=== PATIENT | female | born 1990 | race American Indian/Alaskan Native ===

== ENCOUNTER 2019-02-16 18:48 | Inpatient (IN) | payer MEDICAID ==
[2019-02-16] MEDS ORDERED: MINERAL OIL PO PRN (20:15)
[2019-02-16] MEDS ORDERED: BRETHINE IVP PRN (20:15)
[2019-02-16] MEDS ORDERED: ZOFRAN IV PRN (20:15)
[2019-02-16] MEDS ORDERED: NARCAN 0.4 MG/1 ML IV PRN (20:15)
[2019-02-16] MEDS ORDERED: PHENERGAN PR PRN (20:15)
[2019-02-16] MEDS ORDERED: BRETHINE SUB-Q PRN (20:15)
[2019-02-16] MEDS ORDERED: XYLOCAINE 2% INFILTRATI ONE (20:15)
--- NOTE | 2019-02-16 20:24 | History and Physical Report ---
History of Present Illness Date of examination: 02/16/19 Date of admission: 02/16/19 18:48 Chief complaint: Induction of labor History of present illness: 28 yo AA Fe , AMANDA 02/17/2019, 39 weeks 6 days, presents for IOL due to macrosomia. Pt initiated early care with [employer] at 9w5d. complicated by Flu and Migraines in early . Low Lying placenta at anatomy scan. Resolved12/09/18. Excessive weight gain: 65Lbs. macrosomia 02/10/19 EFW 98.66%, 4614g, 10lbs 3 oz. Pt has a proven pelvis to 9lbs 3 oz. labs: O positive, Rubella Immune, VDRL Non-reactive, HBsAg Negative, HIV Negative, GC/CL/Trich Negative. GBS Negative. 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 denies: smoking, alcohol abuse, prescription drug abuse, IV drug use - Obstetrical History Expected Date of Delivery: 02/17/19 Actual Gestation: 39 Week(s) 6 Day(s) : 3 Para: 2 Hx # Term Pregnancies: 2 Number of Pregnancies: 0 Spontaneous Abortions: 0 Induced : 0 Number of Living Children: 2 #1 Gender: Male year: 2[birth year] Birthweight: 3.515 kg Method of Delivery: Vaginal Gestational age at delivery: 38 Complications: none #2 Infant Gender: Female year: 2,[birth year] Birthweight: 4.167 kg Method of Delivery: Vaginal Gestational age at delivery: 41 Complications: none Review of Systems Eyes: normal appearance Cardiovascular: no chest pain, no shortness of breath Respiratory: no shortness of breath Breasts: normal Gastrointestinal: no abdominal pain, no nausea, no vomiting, no diarrhea, no constipation Genitourinary: normal appearance, no vaginal bleeding, no vaginal discharge, no leakage of fluid, no pelvic pain, no genital sores Rectal Exam: deferred Integumentary: no rash, no sores, no lesions Psychiatric: other (Denies) Endocrine: other (Denies) - Physical Exam Breasts: Positive: normal Cardiovascular: Regular rate, Normal S1, Normal S2, No murmurs Lungs: Positive: Clear to auscultation, Normal air movement Abdomen: Positive: normal appearance, soft, normal bowel sounds. Negative: distention Genitourinary (Female): Positive: normal external genitalia, normal perenium Vulva: both: normal Vagina: Positive: normal moisture Uterus: Positive: enlarged (Gravid) Anus/Rectum: Positive: normal perianal skin Extremities: Positive: normal, edema (1-2+) Deep Tendon Reflex Grade: Normal +2 - Obstetrical FHR: auscultation normal, category 1 Uterine Contraction Monitor Mode: External Cervical Dilatation: 1 Cervical Effacement Percentage: 75 station: -2 Uterine Contraction Pattern: Absent Uterine Tone Measurement Phase: Resting Results All other labs normal. Assessment and Plan A: Term IUP 39w6d Category 1 tracing GBS Negative Suspected macrosomia; Proven pelvis 9lbs 3oz p: Admit to L&D Routine labor orders Cooks catheter/Pitocin Augmentation Anticipate Plans Cord Blood collection; Kit provided Pt aware of suspected macrosomia with last OBUS 02/10/19. EFW 10lbs 3oz. Discussed possibilities to include CPD, distress, Shoulder dystocia to include brachial plexus injury, erbs palsy, emergent need for C/S, and . Primary section option discussed. Pt has proven pelvis to 9lbs 3oz and desires .
[2019-02-16] MEDS ORDERED: LACTATED RINGERS 1,000 ML IV SCH (21:00)
[2019-02-16] MEDS ORDERED: PITOCin/NS 20 UNIT/1000ML DRIP 20 UNITS/1,000 ML BAG IV SCH (21:00)
[2019-02-16] MEDS ORDERED: CERVIDIL VG ONE (21:17)
[2019-02-16 21:20] LABS: Hematocrit 34.8 % (30.3-42.9); Hemoglobin 11.5 gm/dl (10.1-14.3); Mean Corpuscular HGB Conc 33 % (30-34); Mean Corpuscular Volume 82 fl (79-97); Platelet Count 275 K/mm3 (140-440); Red Blood Count 4.26 M/mm3 (3.65-5.03); Red Cell Distribution Width 16.6 % (13.2-15.2)
[2019-02-16] MEDS ORDERED: AMBIEN PO PRN (21:39)
[2019-02-17] MEDS ORDERED: SUBLIMAZE ONE (09:20)
[2019-02-17] MEDS ORDERED: SUBLIMAZE IV ONE (09:22)
[2019-02-17] MEDS ORDERED: LANSINOH TP PRN (10:27)
[2019-02-17] MEDS ORDERED: BENADRYL PO PRN (10:27)
[2019-02-17] MEDS ORDERED: TYLENOL PO PRN (10:27)
[2019-02-17] MEDS ORDERED: PHENERGAN PO PRN (10:27)
[2019-02-17] MEDS ORDERED: MILK OF MAGNESIA PO PRN (10:27)
[2019-02-17] MEDS ORDERED: TUCKS PAD TP PRN (10:27)
[2019-02-17] MEDS ORDERED: ZOFRAN IV PRN (10:27)
[2019-02-17] MEDS ORDERED: DULCOLAX PR PRN (10:27)
--- NOTE | 2019-02-17 10:35 | Procedure Note ---
OB Delivery Note - Delivery Date of Delivery: 02/17/19 (0932) Surgeon: JENY GABRIEL (MOOSE) Estimated blood loss: 200cc - Vaginal Delivery presentation: vertex Delivery position: OA Intrapartum events: none Delivery induction: cervidil Delivery monitor: external FHT, external uterine Route of delivery: (09:32) Delivery placenta: spontaneous (09:44) Delivery cord: 3 umbilical vessels Episiotomy: none Delivery laceration: none Anesthesia: none Delivery comments: Unmedicated viable male infant RENATO position over intact perineum at 09:32. Vigorous with strong lusty cry placed [id number] on mothers abdomen. Delayed cord clamping for 60 sec. Cord then cut by FOB with my guidance. Cord blood collection per protocol. Stem Cell/cord tissue collection done for private cord banking per pt request. Spontaneous ortiz delivery of intact placenta at 09:44. Release signed as pt plans to take placenta home with her. [email or web address]. Bleeding small. 10 units pitocin IM d/t loss of IV during pushing. No tears or lacerations. EBL 200ml. and mother left in stable condition in L&D. - A at 1 minute: 9 at 5 minutes: 9 Infant Gender: Male (4429 grams, 9lbs 12oz, 20.5")
[2019-02-17] MEDS ORDERED: CYTOTEC ONE (10:58)
[2019-02-17] MEDS ORDERED: SODIUM CHLORIDE FLUSH SYRINGE 10 ML IV SCH (11:00)
[2019-02-17] MEDS ORDERED: METHERGINE IM ONE (11:07)
[2019-02-17 12:41] LABS: Basophils % (Auto) 0.2 % (0.0-1.8); Eosinophils % (Auto) 0.1 % (0.0-4.3); Hematocrit 30.1 % (30.3-42.9); Hemoglobin 9.9 gm/dl (10.1-14.3); Lymphocytes # (Auto) 0.9 K/mm3 (1.2-5.4); Lymphocytes % (Auto) 5.3 % (13.4-35.0); Mean Corpuscular HGB Conc 33 % (30-34); Mean Corpuscular Volume 81 fl (79-97); Monocytes # (Auto) 0.9 K/mm3 (0.0-0.8); Monocytes % (Auto) 5.3 % (0.0-7.3); Platelet Count 273 K/mm3 (140-440)
--- NOTE | 2019-02-17 13:24 | Event Note ---
Date: 02/17/19 (11:00) Called to pt room from nurses station for heavy vaginal bleeding. Pt found to have saturated chux underneath her bottom. Pt moaning stating she is in severe pain "cramping like contractions." Fundus firm, U+1. 350ml clear, light yellow urine emptied using red rubber catheter. Manual evacuation of Lg amount clots which filled Chux. Weighed 1127 grams. 800mcg Cytotec FL at 11:04, IM Methergine given 11:07, IV restarted. 1 liter IVF with pitocin hung at bolus rate, 100mcg Fentanyl IVP. Stat CBC drawn. Pt symptomatic during event. Fundus then Firm, U- 1. Scant bleeding. VSS. EBL 1800ML
[2019-02-17] MEDS ORDERED: CYTOTEC PR ONE (14:04)
[2019-02-17] MEDS: NORCO 5/325 PO PRN ×2 (14:07→20:31)
[2019-02-17] MEDS: IBUPROFEN PO SCH ×2 (17:00→17:37)
[2019-02-17] MEDS: METHERGINE PO SCH (22:00)
[2019-02-18] MEDS: IBUPROFEN PO SCH ×2 (00:22→06:37)
[2019-02-18 00:51] LABS: Hematocrit 24.9 % (30.3-42.9); Hemoglobin 8.4 gm/dl (10.1-14.3)
[2019-02-18] MEDS: NORCO 5/325 PO PRN (06:22)
[2019-02-18] MEDS: METHERGINE PO SCH (06:22)
--- NOTE | 2019-02-18 14:09 | Progress Note ---
Assessment and Plan A: PPD#1 s/p with PPH Asymptomatic anemia Stable P: Routine PP care Ferrous Sulfate 325mg PO BID Discharge home today pending peds Subjective - Subjective Date of service: 02/18/19 Principal diagnosis: PPD#1 s/p with PPH Interval history: 28 yo AA Fe , AMANDA 02/17/2019, 39 weeks 6 days, presents for IOL due to macrosomia with 02/17/2019. P Patient reports: appetite normal, voiding normally, pain well controlled, flatus, ambulating normally : doing well, nursing well Objective - Vital Signs Latest vital signs: Vital Signs Temp Pulse Resp BP Pulse Ox 02/18/19 08:10 97.8 F 94 H 18 104/69 100 02/18/19 00:30 98.7 F 77 16 117/77 02/17/19 16:02 98.3 F 72 18 100/63 02/17/19 14:31 97.6 F 91 H 18 132/79 Intake and Output 02/17/19 02/18/19 02/18/19 23:59 07:59 15:59 Intake Total 4200 540 960 Output Total 2000 900 Balance 2200 -360 960 Intake: Oral 1500 240 120 Intake, Free Water 1900 300 840 Other 800 Output: Urine 2000 900 Void 2000 900 Other: Total, Intake Amount 2300 240 120 Total, Output Amount 1000 900 # Voids Void 2 1 1 - Exam Breasts: Present: normal, Cardiovascular: Present: Regular rate, Normal S1, Normal S2, No murmurs Lungs: Present: Clear to auscultation, Normal air movement Abdomen: Present: normal appearance, soft, normal bowel sounds. Absent: distention Vulva: both: normal Uterus: Present: firm, fundal height below umbilicus (-1) Extremities: Present: normal, edema (1+) Deep Tendon Reflex Grade: Normal +2 - Labs Labs: Abnormal lab results 02/18/19 Range/Units 00:05 Hgb 8.4 L (10.1-14.3) gm/dl Hct 24.9 L (30.3-42.9) %
--- NOTE | 2019-02-18 14:12 | Discharge Summary ---
Providers - Providers Date of Admission: 02/16/19 18:48 Date of discharge: 02/18/19 Attending physician: DOLLY GRUBBS MD Primary care physician: DOLLY GRUBBS MD Hospitalization Reason for admission: induction of labor, IUP at term Delivery: (02/17/2019) Procedure details: See delivery note Episiotomy: none Laceration: none Other procedures: none complications: other (PPH) Discharge diagnosis: IUP at term delivered baby: male Condition at discharge: Good Disposition: DC-01 TO HOME OR SELFCARE Plan - Provider Discharge Summary Activity: routine, no sex for 6 weeks, no heavy lifting 4 weeks, no strenuous exercise Diet: routine Instructions: routine Additional instructions: [] Smoking cessation referral if applicable(refer to patient education folder for contact #) [] Refer to [facility]'s [facility] Booklet Call your doctor immediately for: * Fever > 100.5 * Heavy vaginal bleeding ( >1 pad per hour) * Severe persistent headache * Shortness of breath * Reddened, hot, painful area to leg or breast * Drainage or odor from incision. * Keep incision clean and dry at all times and follow doctor's instructions regarding bathing/showering Ferrous Sulfate 325mg PO BID (Script escribed) - Follow up plan Follow up: JENY GABRIEL CNM [Advanced Practice Nurse] - 6 Weeks
[2019-02-18 17:08] VITALS: BP 94/59
== END 2019-02-18 17:45 | disposition home or self-care (01) | DRG 774 ==
LOC: LD 18:48 → OB 02-17 13:35
PROVIDERS: ADMIT Obstetrics & Gynecology; ATTEND Obstetrics & Gynecology
PROC: 10E0XZZ Delivery of Products of Conception, External Approach (ICD-10-PCS; principal; 2019-02-17)
PROC: 3E0P7VZ Introduction of Hormone into Female Reproductive, Via Natural or Artificial Opening (ICD-10-PCS; 2019-02-17)
DX: O36.63X0 Maternal care for excessive fetal growth, third trimester, not applicable or unspecified (principal); O72.1 Other immediate postpartum hemorrhage; O90.81 Anemia of the puerperium; D64.9 Anemia, unspecified; Z3A.39 39 weeks gestation of pregnancy; Z37.0 Single live birth
CPT/HCPCS: 36415; 59200; 85014; 85018; 85025; 85027; 86850; 86900; 86901; G0378; A6250; J2210; J2590; J3010; J7120